=== PATIENT | female | born 1980 | race Caucasian/White ===

== ENCOUNTER 2017-11-26 09:30 | Inpatient (IN) | payer OTHER ==
[~2017-11-26] VITALS: Ht 162.6 cm; Wt 85.7 kg
[2017-12-10] MEDS ORDERED: PRENATAL TABLE1 EAC1 PO (10:42)
[2017-12-10] MEDS ORDERED: VALTREX1000 MG PO (10:43)
== END 2017-12-12 16:37 | disposition home or self-care (01) | DRG 774 ==
LOC: LDR 12-10 13:26 → SURG-SUITE 12-10 16:38 → OB/GYN 12-16 09:30
PROC: 10E0XZZ Delivery of Products of Conception, External Approach (ICD-10-PCS; principal; 2017-12-10)
PROC: 0W8NXZZ Division of Female Perineum, External Approach (ICD-10-PCS; 2017-12-10)
PROC: 4A1HXCZ Monitoring of Products of Conception, Cardiac Rate, External Approach (ICD-10-PCS; 2017-12-10)
DX: O69.81X0 Labor and delivery complicated by cord around neck, without compression, not applicable or unspecified (principal); O98.513 Other viral diseases complicating pregnancy, third trimester; O42.92 Full-term premature rupture of membranes, unspecified as to length of time between rupture and onset of labor; Z3A.38 38 weeks gestation of pregnancy; Z37.0 Single live birth

== ENCOUNTER 2017-12-10 09:54 | Outpatient (CLI) | payer OTHER ==
[2017-12-10] MEDS ORDERED: PRENATAL TABLE1 EAC1 PO (10:42)
[2017-12-10] MEDS ORDERED: VALTREX1000 MG PO (10:43)
== END 2017-12-10 14:22 | disposition still patient (30) ==
LOC: OBS/DEL 09:54
DX: O47.1 False labor at or after 37 completed weeks of gestation (principal); Z34.83 Encounter for supervision of other normal pregnancy, third trimester

== ENCOUNTER 2019-01-16 08:29 | Outpatient (CLI) | payer OTHER ==
[~2019-01-16 08:29] MED LIST: PRENATAL TABLE1 EAC1 PO; VALTREX1000 MG PO
== END 2019-01-16 10:19 | disposition home or self-care (01) ==
LOC: SONOGRAMA 08:29
DX: E04.2 Nontoxic multinodular goiter (principal)